=== PATIENT | male | born 1970 | race Caucasian/White ===

== ENCOUNTER 2016-07-19 17:25 | Emergency (ER) | payer OTHER ==
[~2016-07-19] VITALS: Ht 180.3 cm; Wt 108.9 kg
--- NOTE | 2016-07-19 17:49 | ED HAND/WRIST INJURY COMPLAINT ---
History of Present Illness General Chief Complaint: Laceration Procedure Stated Complaint: LAC TO MIDDLE FINGER (LT HAND) FROM TABLE SAW Source: patient Exam Limitations: no limitations Vital Signs & Intake/Output Vital Signs & Intake/Output Vital Signs Date Time Temp Pulse Resp B/P Pulse O2 O2 Flow FiO2 Ox Delivery Rate 07/19 1857 97.9 88 18 128/74 98 Room Air 07/19 1730 98.2 91 16 138/96 96 Room Air Allergies Coded Allergies: No Known Allergies (07/19/16) Reconcile Medications Amoxicillin/Potassium Clav (Augmentin 875-125 Tablet) 875 MG-125 MG TABLET 1 TAB PO BID open fx Oxycodone HCl/Acetaminophen (Percocet 5-325 MG Tablet) 5 MG-325 MG TABLET 1-2 TAB PO Q6P PRN pain Triage Note: CUT HIS MIDDLE FINGER LEFT HAND WITH A TABLE SAW. Triage Nurses Notes Reviewed? yes Occurred: just prior to arrival Duration: minute(s):, constant, continues in ED Timing: recent history Injury Environment: home Severity: moderate, severe Pain/Injury Location: Left: 3rd finger. No Modifying Factors: none HPI: 45-year-old male comes into emergency room for further evaluation of laceration to left middle finger. Patient cut it on a table saw at home. Last tetanus shot was about 2 years ago. Some associated bleeding. Some mild throbbing pain. Continuous. Nonradiating. Denies any injury any other associated symptoms. (CATHY ZAPIEN) Past History Travel History Traveled to [place] past 21 day No Medical History Any Pertinent Medical History? see below for history Surgical History Surgical History: non-contributory Psychosocial History What is your primary language Slovak Tobacco Use: Current Daily Use Daily Tobacco Use Amount/Type: => 5 Cigarettes daily ETOH Use: occasional use Illicit Drug Use: denies illicit drug use Family History Hx Contributory? No (CATHY ZAPIEN) Review of Systems Review of Systems Constitutional: Reports: no symptoms. EENTM: Reports: no symptoms. Respiratory: Reports: no symptoms. Cardiovascular: Reports: no symptoms. GI: Reports: no symptoms. Genitourinary: Reports: no symptoms. Musculoskeletal: Reports: see HPI. Skin: Reports: no symptoms. Neurological/Psychological: Reports: no symptoms. Hematologic/Endocrine: Reports: no symptoms. Immunologic/Allergic: Reports: no symptoms. All Other Systems: Reviewed and Negative (CATHY ZAPIEN) Physical Exam Physical Exam General Appearance: well developed/nourished, mild distress Head: atraumatic Eyes: Bilateral: normal appearance. Ears, Nose, Throat: normal ENT inspection, hearing grossly normal Neck: normal inspection Cardiovascular/Respiratory: no respiratory distress Back: normal inspection Hand Left: 3rd finger, laceration across the nail bed, part of the nail of pulse , sensation intact, cap refill intact, tendons intact, Hand Right: normal inspection, normal range of motion Neurologic/Tendon: normal sensation, normal motor functions, normal tendon functions, responds to pain, no evidence tendon injury, no pulse deficit Skin: intact, normal color, warm/dry Lymphatic: no anterior cervical jaylon (CATHY ZAPIEN) Progress Differential Diagnosis: dislocation, felon, fracture, gout, paronychia, septic arthritis, sprain, tenosynovitis Plan of Care: Orders Procedure Date/time Status XRY-FINGERS, LEFT 07/19 1737 Active Diagnostic Imaging: Viewed by Me: Radiology Read. Radiology Impression: SERVICE DATE: 07/19/16 EXAM TYPE: RAD - XRY-FINGERS , LEFT EXAMINATION: XR FINGER, LEFT CLINICAL INFORMATION: 45-year-old man with saw injury. COMPARISON: None TECHNIQUE: Three views of the left middle finger. FINDINGS: The lateral view suggests a subtle fracture of the distal tuft. No definite fracture is seen on the 2 other views. Alignment appears anatomic. No radiopaque foreign body is visible. IMPRESSION: Suspected nondisplaced fracture of the distal tuft. DICTATED BY: JONI LINN MD DATE/TIME DICTATED:07/19/161806 ASSISTANT BASEBALL COACH:SARAH DATE/TIME TRANSCRIBED:07/19/161806 CONFIDENTIAL, DO NOT COPY WITHOUT APPROPRIATE AUTHORIZATION. (CATHY ZAPIEN) Departure Departure Disposition: HOME OR SELF CARE Condition: Stable Clinical Impression Primary Impression: Open fracture of tuft of distal phalanx of finger Referrals: CRISS LIRA MD PATIENT HAS NO PRIMARY CARE DR (PCP/Family) Additional Instructions: Take Augmentin and Percocet as prescribed. Follow-up with plastic surgeon. Follow-up with primary care doctor. Watch for signs of infection such as redness or discharge fever chills. Please go over all results of today's visit with your primary care doctor. Contact your primary care doctor to let them know you were here in the emergency room. There may be nonspecific findings which may not be related to your visit today here in the emergency room but may require further evaluation and chronic monitoring by your primary care doctor. If you had a laceration today the chance of foreign body always remains. You should follow-up with your primary care doctor for recheck in 3-5 days for a wound check. If you had an x-ray done there is a chance that a fracture could have been missed on initial read and you should follow-up with your primary care doctor for repeat x-rays if symptoms persist. If your blood pressure was elevated here in the emergency room please have rechecked by her primary care doctor within the next 48 hours by your primary care doctor. If you were prescribed a narcotic here in the emergency room or any type of controlled substances you're not allowed to drive while taking this medication or operate any type of heavy machinery. Narcotics can make you feel lightheaded dizziness nausea and can cause constipation. 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 Thank you for choosing [facility] emergency room. Please return to the emergency room immediately if you have any other concerns worsening of symptoms. Departure Forms: Customer Survey General Discharge Information Prescriptions: Current Visit Scripts Oxycodone HCl/Acetaminophen (Percocet 5-325 MG Tablet) 1-2 TAB PO Q6P PRN pain #20 TAB Amoxicillin/Potassium Clav (Augmentin 875-125 Tablet) 1 TAB PO BID #20 TAB (CATHY ZAPIEN) PA/PICKER/PULLER Co-Sign Statement Statement: ED Attending supervision documentation- [] I saw and evaluated the patient. I have also reviewed all the pertinent lab results and diagnostic results. I agree with the findings and the plan of care as documented in the PA's/PICKER/PULLER's documentation. x I have reviewed the ED Record and agree with the PA's/PICKER/PULLER's documentation. [] Additions or exceptions (if any) to the PAs/PICKER/PULLER's note and plan are summarized below: [] (SHWETHA SR,PIYUSH) Procedures Laceration/Wound Repair Laceration/Wound Repair: Wound Location: upper extremity Wound's Depth, Shape: linear, nail avulsed Wound Length (cm): 1 Betadine Prep? Yes Anesthesia: digit block, 2% lidocaine Wound Debrided: minimal Suture Size/Type: 4:0, nylon Number of Sutures: 4 Sterile Dressing Applied: Yes Splint Applied? Yes By Who? by me Type of Splint Applied: finger splint Progress: Irrigated with Betadine, peroxide, copious amounts saline. Patient tolerated procedure well. (ZURI UMANA,CATHY)
--- NOTE | 2016-07-19 18:12 | RADIOLOGY REPORT ---
EXAMINATION: XR FINGER, LEFT CLINICAL INFORMATION: 45-year-old man with saw injury. COMPARISON: None TECHNIQUE: Three views of the left middle finger. FINDINGS: The lateral view suggests a subtle fracture of the distal tuft. No definite fracture is seen on the 2 other views. Alignment appears anatomic. No radiopaque foreign body is visible. IMPRESSION: Suspected nondisplaced fracture of the distal tuft.
[2016-07-19] MEDS ORDERED: PERCOCET 5-3251 EACH PO ×2 (18:48→18:49)
[2016-07-19] MEDS ORDERED: AUGMENTIN 875-1 EACH PO ×2 (18:48→18:49)
[2016-07-19 18:57] VITALS: BP 128/74
== END 2016-07-19 19:01 ==
LOC: ERH 17:25
DX: S62.633B Displaced fracture of distal phalanx of left middle finger, initial encounter for open fracture (principal); W27.0XXA Contact with workbench tool, initial encounter
CPT/HCPCS: 73140-LT; J2001; J3490